=== PATIENT | female | born 1970 | race Two or more races ===

== ENCOUNTER 2022-05-12 05:35 | Day surgery (SDC) | payer OTHER ==
[2022-05-10 14:26] VITALS: BMI 23.9
[2022-05-12 10:42] VITALS: TEMP 97.5
[2022-05-12 11:50] VITALS: BP 141/82; PULSE 61; RESP 18
== END 2022-05-12 11:35 | disposition home or self-care (01) ==
LOC: JASU-ENDO 05:35
PROVIDERS: ATTEND Internal Medicine Gastroenterology
PROC: 0DJD8ZZ Inspection of Lower Intestinal Tract, Via Natural or Artificial Opening Endoscopic (ICD-10-PCS; principal; 2022-05-12 08:00)
DX: Z12.11 Encounter for screening for malignant neoplasm of colon (principal); K59.89 Other specified functional intestinal disorders; K64.8 Other hemorrhoids; Z86.010 Personal history of colon polyps
CPT/HCPCS: 81025